=== PATIENT | male | born 1985 | race Caucasian/White ===

== ENCOUNTER 2021-08-15 01:06 | Emergency (ER) | payer OTHER ==
[~2021-08-15] VITALS: Ht 170.2 cm; Wt 94.3 kg
[2021-08-15] MEDS ORDERED: DIAZEPAM 10 MG10 M1 PO (01:16)
[2021-08-15] MEDS ORDERED: ADVAIR 100-501 EACH INH (01:17)
[2021-08-15] MEDS ORDERED: LEVSIN0.125 MG PO (01:18)
[2021-08-15] MEDS ORDERED: LEVBID0.375 MG PO (01:18)
[2021-08-15] MEDS ORDERED: GVOKE HYPO1 MG/0.2 M SQ (01:19)
[2021-08-15] MEDS ORDERED: AIMOVIG AU70 MG/1 ML (01:19)
[2021-08-15] MEDS ORDERED: MEGA BIOTIN10000 MCG PO (01:20)
[2021-08-15] MEDS ORDERED: KONSYL300 GM PO (01:21)
[2021-08-15] MEDS ORDERED: SLOW FE142 MG PO (01:21)
[2021-08-15] MEDS ORDERED: MIRAPEX 0.250.25 M1 PO (01:22)
[2021-08-15] MEDS ORDERED: VISTARIL50 MG PO (01:22)
[2021-08-15] MEDS ORDERED: PRECOSE PO (01:22)
[2021-08-15] MEDS ORDERED: NEURONTIN 300M300 M2 PO (01:23)
[2021-08-15] MEDS ORDERED: CALCIUM500 MG PO (01:23)
[2021-08-15] MEDS ORDERED: CARVEDILOL6.25 M1 PO (01:24)
[2021-08-15] MEDS ORDERED: PROAIR HFA8.5 GM INH (01:25)
[2021-08-15] MEDS ORDERED: FLEXERIL PO (01:25)
[2021-08-15] MEDS ORDERED: ONZETRA XSAIL11 MG NARES (01:25)
[2021-08-15] MEDS ORDERED: FLUOXETINE HCL40 MG PO (01:26)
[2021-08-15] MEDS ORDERED: AVAPRO 150 MG150 M1 PO (01:26)
[2021-08-15 01:55] LABS: ABSOLUTE BASOPHILS 0.1 thou/uL (0.0-0.2); ABSOLUTE EOSINOPHILS 0.3 thou/uL (0.0-0.7); ABSOLUTE LYMPHOCYTES 1.7 thou/uL (0.8-5.3); ABSOLUTE MONOCYTES 1.1 thou/uL (0.0-1.2); ABSOLUTE NEUTROPHILS 11.2 thou/uL (1.6-8.1); BASOPHILS 0.5 %; EOSINOPHILS 2.3 %; HEMATOCRIT 28.2 % (42.0-52.0); HEMOGLOBIN 9.7 gm/dL (14.0-18.0); LYMPHOCYTES 11.5 %; MCH 29.9 pg (26.0-34.0); MCHC 34.4 g/dL (28.0-37.0); MCV 86.7 fL (80.0-100.0); MONOCYTES 7.6 %; MPV 7.9 fl. (7.2-11.1); NUCLEATED RBCS 0 /100WBC; PLATELET COUNT* 250 thou/uL (150-400); POLYS 78.1 %; RBC 3.26 mil/uL (4.50-6.00); RDW-CV 15.6 % (10.5-14.5); WBC 14.4 thou/uL (4.0-11.0)
[2021-08-15 01:57] LABS: CALCIUM 8.1 mg/dL (8.5-10.1); POTASSIUM 3.8 mmol/L (3.5-5.1)
[2021-08-15 02:01] LABS: ALBUMIN 2.8 g/dL (3.4-5.0); MAGNESIUM 1.7 mg/dL (1.8-2.4); TOTAL BILIRUBIN 0.6 mg/dL (<0.1-1.0); TOTAL PROTEIN 6.6 g/dL (6.4-8.2)
[2021-08-15 02:05] LABS: APTT 30.2 Seconds (25.0-31.3); INR 1.1
[2021-08-15 02:08] LABS: BE 3.5 mmol/L (-2 to +3); PCO2 38.5 mmHg (35.0-45.0); pH 7.469 (7.340-7.450)
[2021-08-15 02:10] LABS: PO2 59.3 mmHg (75.0-100.0)
[2021-08-15] MEDS ORDERED: AZITHROMYCIN 2250 MG PO (04:56)
[2021-08-15] MEDS ORDERED: PREDNISONE50 MG PO (04:56)
[2021-08-15 05:06] VITALS: BP 125/65
--- NOTE | 2021-08-15 11:18 | EKG ---
[place] [address] ELECTROCARDIOGRAM REPORT Name: SIMON LOPEZ Room: 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 : [id number] Requested By: Heather Diaz Order Number: [id number] MD: Chance Alexis Measurements Intervals [place] Rate: 124 P: 44 AL: 142 QRS: -14 QRSD: 96 T: 11 QT: 314 QTc: 451 Interpretive Statements Sinus tachycardia Probable left atrial enlargement RSR' in V1 or V2, right VCD or RVH Baseline wander in lead(s) I,II,aVR,V1 No previous ECG available for comparison Electronically Signed On 08-15-2021 11:18:04 CDT by Chance Alexis [email or web address] <ELECTRONICALLY SIGNED> By: Chance Alexis MD, FACC 08/15/21 1118 0124 0124 Chance Alexis MD, FACC /EPI
== END 2021-08-15 05:07 | disposition home or self-care (01) ==
LOC: M.ERS 01:06
PROVIDERS: Personal Emergency Response Attendant
DX: J18.9 Pneumonia, unspecified organism (principal); Z20.822 Contact with and (suspected) exposure to COVID-19; R09.02 Hypoxemia; K21.9 Gastro-esophageal reflux disease without esophagitis; Z98.84 Bariatric surgery status; Z79.899 Other long term (current) drug therapy; Z88.1 Allergy status to other antibiotic agents; Z88.8 Allergy status to other drugs, medicaments and biological substances